=== PATIENT | male | born 1945 | race Hispanic/Latino ===

== ENCOUNTER 2018-04-20 07:29 | Day surgery (SDC) | payer MEDICARE ==
[2018-04-20] MEDS ORDERED: Propofol 10 mg/ml Inj (20 ML) ONE ×2 (09:28→09:29)
--- NOTE | 2018-04-20 09:29 | CP.SDSHP ---
Same Day Surgery H & P - History Proposed Procedure: EGD/colonoscopy Pre-Op Diagnosis: cirrhosis, variceal surveillance, history of polyps - Previous Medical/Surgical History Endocrine/Metabolic: Diabetes - Allergies Allergies: Allergies Penicillins Allergy (Verified 10/29/16 17:56) ANAPHYLAXIS - Physical Exam General Appearance: NAD Vital Signs: Vital Signs 04/20/18 07:58 Temperature 98 F Pulse Rate 55 L Respiratory 17 Rate Blood Pressure 125/61 O2 Sat by Pulse 99 Oximetry Mental Status: Alert & Oriented x3 Neuro: WNL Heart: WNL Lungs: WNL GI: WNL - {Optional Preform as Required} Abdomen: WNL - Impression Pt. Evaluated Today:Candidate for Anesthesia & Procedure: Yes - Date & Time Date: 04/20/18 Time: 09:29 Short Stay Discharge - Short Stay Discharge Admitting Diagnosis/Reason for Visit: COLONIC POLYPS / CIRRHOSIS Disposition: HOME/ ROUTINE
[2018-04-20] MEDS ORDERED: Lactated Ringer's 1,000 ML IV ONE (09:35)
[2018-04-20] MEDS ORDERED: Simethicone 40 mg/0.6 ml Liquid (30 ml) ONE (09:55)
[2018-04-20 10:49] VITALS: O2SAT 99
[2018-04-20 11:05] VITALS: PULSE 58
[2018-04-20 11:27] VITALS: BP 101/51; RESP 14; TEMP 97
== END 2018-04-20 11:20 | disposition home or self-care (01) ==
LOC: C.ENDO 07:29
PROVIDERS: ATTEND Internal Medicine Gastroenterology
DX: Z12.11 Encounter for screening for malignant neoplasm of colon (principal); Z13.810 Encounter for screening for upper gastrointestinal disorder; D12.2 Benign neoplasm of ascending colon; D12.4 Benign neoplasm of descending colon; D12.5 Benign neoplasm of sigmoid colon; K64.1 Second degree hemorrhoids; K29.50 Unspecified chronic gastritis without bleeding; K74.60 Unspecified cirrhosis of liver; Z86.010 Personal history of colon polyps; E11.9 Type 2 diabetes mellitus without complications; E78.5 Hyperlipidemia, unspecified; Z86.73 Personal history of transient ischemic attack (TIA), and cerebral infarction without residual deficits; Z98.890 Other specified postprocedural states; Z79.899 Other long term (current) drug therapy
CPT/HCPCS: 43239; 45380; 45385; 82948; 88305; 88313; 88342; J2001; J2704; J7120